=== PATIENT | female | born 1960 ===

== ENCOUNTER 2018-01-21 15:02 | Emergency (ER) | payer MEDICAID ==
[2018-01-21 15:02] VITALS: BMI 38.3
[2018-01-21 15:08] VITALS: RESP 20; TEMP 98.4
--- NOTE | 2018-01-21 15:23 | ED PDOC ---
- ECG O2 Sat by Pulse Oximetry: 99 Disposition - Disposition
--- NOTE | 2018-01-21 15:32 | ED PDOC ---
HPI: General Adult Time Seen by Provider: 01/21/18 15:11 Chief Complaint (Nursing): Anxiety Chief Complaint (Provider): Palpitations History Per: Patient History/Exam Limitations: no limitations Onset/Duration Of Symptoms: Days (today) Current Symptoms Are (Timing): Gone Now Additional Complaint(s): Pt. with palpitations when she was driving. Started suddenly and got anxious with it. No chest pain, dyspnea, dizziness, weakness, headaches, abd pain, nausea, vomit, diarrhea. States it is better now. No leg pain, numbness, tingles. Lasted about 5 min. Pt. had same when she lost her job sometime back. No drugs or etoh. Past Medical History Reviewed: Nursing Documentation, Vital Signs Vital Signs: Last Vital Signs Temp 98.4 F 01/21/18 15:07 Pulse 101 H 01/21/18 15:07 Resp 20 01/21/18 15:07 BP 132/85 01/21/18 15:07 Pulse Ox 99 01/21/18 20:33 - Medical History PMH: Anxiety, Asthma, Depression, HTN, Hypothyroidism, Malignancy Denies: Chronic Kidney Disease - Surgical History Surgical History: Cholecystectomy Other surgeries: thyroid surgery - Family History Family History: States: Unknown Family Hx - Social History Alcohol: None Drugs: Denies - Home Medications Home Medications: Ambulatory Orders Medication Instructions Recorded Lisinopril [Zestril] 20 mg PO DAILY #0 tab 06/09/15 Levothyroxine [Synthroid] 09/17/16 - Allergies Allergies/Adverse Reactions: Allergies Allergy/AdvReac Type Severity Reaction Status Date / Time aspirin Allergy NAUSEA Verified 09/17/16 07:53 Review of Systems ROS Statement: Except As Marked, All Systems Reviewed And Found Negative Cardiovascular: Positive for: Palpitations Psych: Positive for: Anxiety Physical Exam - Reviewed Nursing Documentation Reviewed: Yes Vital Signs Reviewed: Yes - Physical Exam Appears: Positive for: Non-toxic, No Acute Distress Head Exam: Positive for: ATRAUMATIC, NORMAL INSPECTION, NORMOCEPHALIC Skin: Positive for: Normal Color, Warm, DRY Eye Exam: Positive for: EOMI, Normal appearance, PERRL ENT: Positive for: Normal ENT Inspection Neck: Positive for: Normal, Painless ROM Cardiovascular/Chest: Positive for: Regular Rate, Rhythm, Chest Non Tender. Negative for: Edema Respiratory: Positive for: CNT, Normal Breath Sounds Gastrointestinal/Abdominal: Positive for: Normal Exam, Soft. Negative for: Tenderness Back: Positive for: Normal Inspection. Negative for: L CVA Tenderness, R CVA Tenderness Extremity: Positive for: Normal ROM. Negative for: Tenderness, Pedal Edema Neurologic/Psych: Positive for: Alert, para operator II-XII, Oriented. Negative for: Motor/Sensory Deficits, Facial Droop - Laboratory Results Result Diagrams: 01/21/18 18:40 - ECG ECG: Positive for: Interpreted By Me, Viewed By Me ECG Rhythm: Positive for: Normal QRS, Normal ST Segment, Sinus Rhythm O2 Sat by Pulse Oximetry: 99 Pulse Ox Interpretation: Normal - Progress ED Course And Treament: 2105: Stable. CMP still not done by lab. Pt. wants to go home. Feels better. AAOx3. No pain or symptoms. FU with pcp. Disposition - Clinical Impression Clinical Impression: Palpitation - Patient ED Disposition Is Patient to be Admitted: No Counseled Patient/Family Regarding: Studies Performed, Diagnosis - Disposition Referrals: [facility] [Outside] - 01/22/18 Disposition: Routine/Home Disposition Time: 21:07 Condition: STABLE Additional Instructions: Return if not better in 3 days. Instructions: Palpitations
[2018-01-21 18:48] LABS: BASO # 0.1 K/uL (0.0-0.2); EOS # 0.1 K/uL (0.0-0.7); EOS % 1.7 % (0.0-4.0); HEMOGLOBIN 14.6 g/dL (12.0-16.0); LYMPH # 1.7 K/uL (1.0-4.3); LYMPH % 19.6 % (20.0-40.0); MEAN CELL VOLUME 90.9 fl (81.0-99.0); MEAN CORPUSCULAR HEMOGLOBIN 30.4 pg (27.0-31.0); MEAN CORPUSCULAR HGB CONC 33.4 g/dL (33.0-37.0); MEAN PLATELET VOLUME 7.8 fl (7.2-11.7); MONO # 0.5 K/uL (0.0-0.8); MONO % 5.7 % (0.0-10.0); NEUT # 6.1 K/uL (1.8-7.0); RBC 4.81 Mil/uL (3.80-5.20); RED CELL DISTRIBUTION WIDTH 14.5 % (11.5-14.5); WHITE BLOOD COUNT 8.5 K/uL (4.8-10.8)
[2018-01-21 21:14] LABS: ALB/GLOB RATIO 1.1 (1.0-2.1); ALBUMIN 4.3 g/dL (3.5-5.0); ALT/SGPT 29 U/L (9-52); AST/SGOT 57 U/L (14-36); BLOOD UREA NITROGEN 22 mg/dl (7-17); CALCIUM 9.8 mg/dL (8.4-10.2); GFR AFRICAN-AMERICAN > 60; GFR NON-AFRICAN AMERICAN > 60
[2018-01-21 21:31] VITALS: BP 142/96; PULSE 80; O2SAT 100
--- NOTE | 2018-01-22 12:18 | CARD ---
APPROVED REPORT EKG Measurement Heart [id number] <Conclusion> Normal sinus rhythm Normal ECG
== END 2018-01-21 21:16 | disposition home or self-care (01) ==
LOC: H.ER 15:02
DX: R00.2 Palpitations (principal); E03.9 Hypothyroidism, unspecified; F32.9 Major depressive disorder, single episode, unspecified; F41.9 Anxiety disorder, unspecified; I10 Essential (primary) hypertension; J45.909 Unspecified asthma, uncomplicated

== ENCOUNTER 2018-10-30 06:01 | Day surgery (SDC) | payer MEDICARE, MEDICAID ==
[2018-10-29 17:01] VITALS: BMI 35.3
[2018-10-30 06:41] VITALS: RESP 18
[2018-10-30] MEDS ORDERED: Lactated Ringer's 1,000 ML IV ONE (07:07)
[2018-10-30] MEDS ORDERED: Albuterol-Ipratrop 3 mg / 0.5 (3 ml) UD INH STA (07:15)
[2018-10-30 07:17] LABS: BASO % 0.6 % (0.0-2.0); EOS # 0.2 K/uL (0.0-0.7); EOS % 2.1 % (0.0-4.0); HEMOGLOBIN 14.5 g/dL (12.0-16.0); LYMPH # 2.4 K/uL (1.0-4.3); LYMPH % 29.4 % (20.0-40.0); MEAN CELL VOLUME 89.9 fl (81.0-99.0); MEAN CORPUSCULAR HEMOGLOBIN 30.3 pg (27.0-31.0); MEAN CORPUSCULAR HGB CONC 33.7 g/dL (33.0-37.0); MEAN PLATELET VOLUME 7.4 fl (7.2-11.7); MONO # 0.5 K/uL (0.0-0.8); NEUT # 5.1 K/uL (1.8-7.0); NEUT % 61.9 % (50.0-75.0); NRBC % 0.1 % (0.0-0.0); RBC 4.79 Mil/uL (3.80-5.20); RED CELL DISTRIBUTION WIDTH 13.8 % (11.5-14.5); WHITE BLOOD COUNT 8.2 K/uL (4.8-10.8)
[2018-10-30 07:27] LABS: BLOOD UREA NITROGEN 15 mg/dl (7-17); CALCIUM 9.5 mg/dL (8.4-10.2); GFR NON-AFRICAN AMERICAN > 60
[2018-10-30] MEDS ORDERED: Bupivacaine HCl 0.5% PF (30 ml) Inj ONE (07:53)
[2018-10-30] MEDS ORDERED: Lidocaine 1% w Epi 1:100,000 Inj ONE (07:53)
[2018-10-30] MEDS ORDERED: Midazolam 2 MG/2 ML VIAL ONE (08:06)
[2018-10-30] MEDS ORDERED: Ketamine 50 mg/ml Inj (10 ml) ONE (08:07)
[2018-10-30] MEDS ORDERED: Bupivacaine 0.5% Inj(30mL) IJ ONE (08:24)
[2018-10-30] MEDS ORDERED: Lidocaine/Epi 1% 1:100000 20 ML IJ ONE (08:24)
--- NOTE | 2018-10-30 08:43 | CP.SDSHP ---
Same Day Surgery H & P - Allergies Allergies: Allergies aspirin Allergy (Verified 10/30/18 06:25) NAUSEA - Physical Exam Vital Signs: Vital Signs 10/30/18 10/30/18 10/30/18 06:38 06:45 07:25 Temperature 97.8 F Pulse Rate 92 H 92 H 90 Respiratory 18 Rate Blood Pressure 116/82 O2 Sat by Pulse 99 Oximetry Short Stay Discharge - Short Stay Discharge Admitting Diagnosis/Reason for Visit: L81.9 Disposition: HOME/ ROUTINE Referrals: Maximiliano Carbone MD [Primary Care Provider] - Tien Rogers MD [Staff Provider] - Follow-up: Follow up with Dr. Rogers in her office in 2 weeks. Instructions: Skin Biopsy Additional Instructions (Diet, Activity): You may remove the dressing from the biopsy on Friday--then keep covered with a bandaid only as needed You may shower on Friday--pat biopsy site dry after You may eat and be active as normal Call Dr. Rogers's office or come to ER for any fever >100.4 not treated with tylenol, severe bleeding or pus coming from the incision, or any other concerning symptoms. Take advil or tylenol for pain Progress Note/Discharge Note with Instructions: Pt is a 58F who presented through same day surgery for a biopsy of a right breast skin lesion that had been present for 1 month. Procedure was performed without complication, patient tolerated it well, and will be discharged to home with follow up with Dr. Rogers in her office for wound check and pathology results.
[2018-10-30] MEDS ORDERED: Lactated Ringer's 1,000 ML IV SCH (08:45)
--- NOTE | 2018-10-30 08:52 | PCM.SURG1 ---
Surgeon's Initial Post Op Note - Surgeon's Notes Surgeon: Dr. Tien Rogers Stress Analyst: Gloria Rodriguez, PGY2; Type of Anesthesia: IV Sedation, Local Anesthesia Administered By: Dr. Jaime Pre-Operative Diagnosis: skin lesion right breast Operative Findings: 1.5cm diameter slightly raised, irregular bordered, dark pigmented skin lesion 11 o'clock of right breast areola Post-Operative Diagnosis: same Operation Performed: skin lesion punch biopsy of right areola Specimen/Specimens Removed: punch biopsy of right breast skin lesion Estimated Blood Loss: EBL {In ML}: 1 Drains Used: No Drains Post-Op Condition: Fair Date of Surgery/Procedure: 10/30/18 Time of Surgery/Procedure: 08:00
--- NOTE | 2018-10-30 09:42 | PCM.OP ---
Operative Report - Operative Report Date of Surgery/Procedure: 10/30/18 Time of Surgery/Procedure: 08:00 Surgeon: Dr. Tien Rogers Boning Room Worker: Gloria Rodriguez PGY2 Anesthesia/Sedation: Dr. Stephen Jaime Pre-Operative Diagnosis: skin lesion right breast Post-Operative Diagnosis: same Indication for Surgery: Patient had a skin lesion of the right breast areolar for 1 month. Lesion was dark, raised, with irregular borders and approximately 1.5cm in diameter, warranting biopsy for pathology Operative Findings: dark skin lesion, slightly raised, with irregular borders, approximately 1.5cm in diameter at the 11 o'clock position of the right breast areola, approximately 1cm from the nipple Procedure/Operation Description: Patient was transferred from the stretcher to the OR table in the supine position with no difficulty. Light IV sedation was administered, time out was performed. Maribel precautions were employed by all staff, sterile gowns and gloves donned by surgeon and assistants, patient was prepped and draped in the normal sterile manner. 8cc's of 50/50 mixture of 5% marcaine and 1%lidocaine with epi were injected around the lesion, 6mm punch biopsy was performed, biopsy tissue was handed off the table. Incision site was approximated with 4-0 plain gut suture and dressed with gauze and tape. Patient was transported on to the stretcher and to PACU without any complications. All counts were correct. Patient tolerated the procedure well. Estimated Blood Loss: 1cc Sponge/Instrument Count: Instrument count was correct Complications: none Discharge & Condition: fair
[2018-10-30 11:00] VITALS: BP 99/63; PULSE 90; TEMP 97.4; O2SAT 99
--- NOTE | 2018-10-30 12:21 | CARD ---
APPROVED REPORT Date of service: 10/30/2018 EKG Measurement Heart [id number] <Conclusion> Normal sinus rhythm Normal ECG
== END 2018-10-30 12:00 | disposition home or self-care (01) ==
LOC: H.OPSURG 06:01
PROVIDERS: ATTEND Specialist
DX: N64.89 Other specified disorders of breast (principal); J45.909 Unspecified asthma, uncomplicated; I10 Essential (primary) hypertension; K29.50 Unspecified chronic gastritis without bleeding
CPT/HCPCS: 11104; 36415; 80048; 85025; 88305; 93005; 94640; J2250; J3010; J7030; J7120